=== PATIENT | female | born 1940 | race Caucasian/White ===

== ENCOUNTER 2017-02-20 07:05 | Day surgery (SDC) | payer MEDICARE, OTHER ==
[2017-02-17 10:19] LABS: BASOPHILS 0.5 %; BASOPHILS ABSOLUTE 0.04 10/3/uL (0.0-0.16); EOSINOPHILS 1.6 %; EOSINOPHILS ABSOLUTE 0.12 10/3/uL (0.0-0.53); HEMATOCRIT 40.5 % (36.0-48.0); HEMOGLOBIN 13.7 g/dL (12.0-16.0); IMMATURE GRANULOCYTES 0.1 %; IMMATURE GRANULOCYTES ABSOLUTE 0.01 10/3/uL (0.0-0.11); LYMPHOCYTES 28.1 %; LYMPHOCYTES ABSOLUTE 2.07 10/3/uL (0.67-4.30); MANUAL DIFF NO %; MEAN CORPUS HGB CONC 33.8 g/dL (32.0-36.0); MEAN CORPUSCULAR HEMOGLOB 33.2 pg (26.0-34.0); MEAN CORPUSCULAR VOLUME 98.1 fL (80-100); MEAN PLATELET VOLUME 10.9 fL (9.2-13.0); MONOCYTES 7.9 %; MONOCYTES ABSOLUTE 0.58 10/3/uL (0.21-1.20); NEUTROPHILS 61.8 %; NEUTROPHILS ABSOLUTE 4.55 10/3/uL (2.02-8.40); PLATELET COUNT 287 10/3/uL (150-400); RBC DISTRIBUTION WIDTH 12.2 % (12.0-16.0); RED CELL COUNT 4.13 10/6/uL (4.0-5.6); WHITE BLOOD CELLS 7.4 10/3/uL (4.5-10.5)
[2017-02-17 10:35] LABS: A/G RATIO 1.3 (0.7-1.9); ALBUMIN 3.9 G/DL (3.5-5.0); ALKALINE PHOSPHATASE 152 U/L (45-117); BUN (BLOOD UREA NITROGEN) 18 MG/DL (6-23); CALCIUM, SERUM 9.1 MG/DL (8.5-10.4); CHLORIDE, SERUM 104 MMOL/L (96-112); CO2 (CARBON DIOXIDE) 32 MMOL/L (24-34); CREATININE 0.81 MG/DL (0.55-1.02); GFR AFRICAN AMERICAN 81 ML/MIN (>=60); GFR NON AFRICAN AMERICAN 70 ML/MIN (>=60); GLUCOSE, SERUM 98 MG/DL (60-99); POTASSIUM, SERUM 4.1 MMOL/L (3.5-5.3); SGOT(AST) 16 U/L (5-40); SGPT(ALT) 25 U/L (5-65); SODIUM, SERUM 140 MMOL/L (135-148); TOTAL BILIRUBIN 0.3 MG/DL (0-1.2); TOTAL PROTEIN 6.9 G/DL (6.0-8.5)
--- NOTE | ~2017-02-20 | OP ---
Record Of Operation [facility] [address] [place]. [address] NAME: SUSANA BARDALES : 40 STATUS : REG [facility] [place] PAT#: [id number] AGE: 77 ADM/REG DATE : 02/20/17 MR#: [id number] REPORT SERV DATE: 02/20/17 DICTATED BY: ZEESHAN CODY JR. DATE: 02/20/17 REPORT STATUS : Draft TRANSCRIBED BY: MODL DATE: 02/20/17 DATE OF PROCEDURE: REASON FOR SURGERY: This 77-year-old patient presents with an extremely small malignant nodule of the right breast. Its measurement is only about between 4 and 6 mm. Biopsy is reviewed and has favorable characteristics but is intermediate grade. The patient has difficulty understanding the different tissues with underlying depression being an emotional filter. She certainly needs standards of care which involved breast preservation in this patient with massive breast and a very small lesion. More aggressive surgery will not impact survival, and it is doubtful that any adjuvant therapy will be indicated, although the patient is already demanding postoperative radiation therapy. PREOPERATIVE DIAGNOSIS: Carcinoma of right breast. POSTOPERATIVE DIAGNOSIS: Carcinoma of right breast. SURGEON: Zeeshan Cody M.D. SURGERY PERFORMED: [place] node localization followed by ultrasound localization of the right breast mass, right breast segmentectomy, and sentinel node biopsy. DESCRIPTION OF PROCEDURE: The patient was initially injected in the nuclear medicine facility. She was taken to the operating room and under general anesthesia, she was prepped and draped in supine position in usual sterile fashion. The gamma probe was used to isolate the active site in the right axilla. A small curvilinear incision was made and vertical dissection was carried down to singly active hot spot. The lymph node was removed with a count of over 800 and background count of around 20 indicating appropriate resection of the sentinel node. No palpable nodes. This node was grossly negative. The wound was irrigated and hemostasis obtained. The wound was closed with 2 layers of Monocryl. The lesion of the right breast was not palpable. Even though it was superficial, serial ultrasound was used to localize the lesion. The area was marked and a curvilinear incision was made. Vertical dissection was carried into the fatty tissue and a 3-dimensional excision measuring 5.5 cm across was performed keeping the biopsy site center most. I could feel the indurated fat necrosis from the biopsy site and it was incorporated on the lateral margin as I could not differentiate any tumor from the biopsy. The specimen was removed and oriented for pathology. Initial sectioning did show the biopsy site, but a tumor mass is not evident. It was estimated that a significant portion of this had already been removed with core biopsies. However, the margin at the 12 to 4 o'clock edge somewhat superficially was close to the indurated site which I believe was indeed the biopsy tract. Nonetheless, an additional wall of the cavity from 12 to 5 o'clock was taken measuring 6 x 4 x 1.5 cm. It was oriented for pathology. No induration or tumor involvement. The palpation of the remaining part of the inside of the breast was negative for any induration within this very fatty breast tissue. I am concerned that the specimen x-ray did not reveal the clip. It was known that the clip Record Of [address] [place]. [address] NAME: SUSANA BARDALES : 40 STATUS : REG [facility] [place] PAT#: [id number] AGE: 77 ADM/REG DATE : 02/20/17 MR#: [id number] REPORT SERV DATE: 02/20/17 DICTATED BY: ZEESHAN CODY JR. DATE: 02/20/17 REPORT STATUS : Draft TRANSCRIBED BY: PATRICIA DATE: 02/20/17 was localized on the very surface of the interface between the breast and the subcutaneous tissue, and may be it contained somewhere within the subcutaneous tissue or had been irrigated and suctioned free. Nonetheless, the final pathology will be necessary to document appropriate resection of the very small amount of residual cancer. The wound was irrigated. Hemostasis obtained. The wound was closed with 2 layers of Monocryl. The patient tolerated the procedure well without any complications. ESTIMATED BLOOD LOSS: 5 mL. SPONGE COUNT: Correct. /PATRICIA Zeeshan Cody Jr., M.D. / [id number] CC: Anuja Santizo Jr., M.D.
[~2017-02-20 07:05] MED LIST: 5 HTP PO; ASAB PO; CA-MG-ZINC PO; KLONO2 PO; KRILL OIL PO; LEXAPRO20 PO; LOP50 PO; MIRALAX POWDER1 PKT PO; MULTIPLE VIT PO; PRAVACHOL40 MG PO; QSYMIA 7.5 MG-1 EACH PO; WELLBUTRIN200 MG PO
== END 2017-02-20 17:07 | disposition home or self-care (01) ==
LOC: SDC 07:05
PROVIDERS: Surgery Surgical Oncology
PROC: 07B50ZX Excision of Right Axillary Lymphatic, Open Approach, Diagnostic (ICD-10-PCS; 2017-02-20)
PROC: BH40ZZZ Ultrasonography of Right Breast (ICD-10-PCS; 2017-02-20)
PROC: 0HBT0ZX Excision of Right Breast, Open Approach, Diagnostic (ICD-10-PCS; principal; 2017-02-20 11:00)
DX: C50.911 Malignant neoplasm of unspecified site of right female breast (principal); I10 Essential (primary) hypertension; F32.9 Major depressive disorder, single episode, unspecified; E78.00 Pure hypercholesterolemia, unspecified; M19.90 Unspecified osteoarthritis, unspecified site; J45.909 Unspecified asthma, uncomplicated; E78.5 Hyperlipidemia, unspecified; Z90.710 Acquired absence of both cervix and uterus; Z88.5 Allergy status to narcotic agent; Z88.0 Allergy status to penicillin; Z98.41 Cataract extraction status, right eye; Z98.42 Cataract extraction status, left eye; Z98.890 Other specified postprocedural states
CPT/HCPCS: 71020; 76098; 78195; 80053; 85025; 88305; 88307; 88342; 93005; A9270-GY; A9541; J0690; J2250; J2270; J2405; J3010